=== PATIENT | female | born 1970 | race Caucasian/White ===

== ENCOUNTER 2017-03-26 21:01 | Emergency (ER) | payer OTHER ==
[~2017-03-26] VITALS: Ht 165.1 cm; Wt 58.5 kg
[~2017-03-26 21:01] MED LIST: HYDROCODONE BIT1 T11 PO; VALIUM10 MG PO; XANAX1 MG PO
[2017-03-26] MEDS ORDERED: ZOFRAN ODT4 MG SL (23:05)
== END 2017-03-26 23:30 | disposition home or self-care (01) ==
LOC: ED 21:01
DX: G89.29 Other chronic pain (principal); R11.10 Vomiting, unspecified; F17.200 Nicotine dependence, unspecified, uncomplicated; Z90.710 Acquired absence of both cervix and uterus; Z98.890 Other specified postprocedural states; Z88.0 Allergy status to penicillin; Z88.1 Allergy status to other antibiotic agents; Z88.6 Allergy status to analgesic agent; Z88.5 Allergy status to narcotic agent; Z79.899 Other long term (current) drug therapy; Z85.118 Personal history of other malignant neoplasm of bronchus and lung